=== PATIENT | male | born 1965 | race Caucasian/White ===

== ENCOUNTER 2017-08-06 22:43 | Observation (INO) | payer MEDICARE ==
[2017-08-06 23:38] LABS: ADD MAN DIFF? NO
[2017-08-06] MEDS: ASPIRIN 81 MG TAB PO (23:38)
[2017-08-06] MEDS: ONDANSETRON 4 MG INJ IV ×2 (23:38→23:39)
[2017-08-06] MEDS: METOCLOPRAMIDE 10 MG INJ IV (23:39)
[2017-08-06] MEDS: morphine 2 MG INJ IV (23:39)
[2017-08-06 23:41] LABS: WHITE BLOOD COUNT 6.7 10^3/ul (4.8-10.8)
[2017-08-06 23:41] LABS: BASOPHILS % 0.3 % (0.0-2.0); EOSINOPHILS # 0.1 10^3/ul (0.0-0.5); HEMOGLOBIN 14.2 g/dl (14.0-18.0); LYMPHOCYTES # 3.4 10^3/ul (0.8-2.9); MEAN CORPUSCULAR HGB CONC 34.6 g/dl (32.0-37.0); MEAN CORPUSCULAR VOLUME 86.7 fl (82.0-101.0); MEAN PLATELET VOLUME 9.2 fl (7.4-10.4); MONOCYTE # 0.5 10^3/ul (0.3-0.9); MONOCYTES % 7.5 % (0.0-11.0); NEUTROPHIL # 2.7 10^3/ul (1.6-7.5); NEUTROPHILS % 40.1 % (39.0-77.0); PLATELET COUNT 241 10^3/UL (140-415); RED BLOOD COUNT 4.73 10^6/ul (4.70-6.10); RED CELL DISTRIBUTION WIDTH 12.5 % (11.5-14.5)
[2017-08-06] MEDS: SOD CHLORIDE 0.9% 1,000 ML IV (23:50)
[2017-08-07 00:05] LABS: ALANINE AMINOTRANSFERASE 63 IU/L (13-69); ALBUMIN 4.4 g/dl (3.3-4.9); ALBUMIN/GLOBULIN RATIO 1.41; ALKALINE PHOSPHATASE 65 IU/L (42-121); ANION GAP 21 (8-16); ASPARTATE AMINO TRANSFERASE 37 IU/L (15-46); BILIRUBIN,INDIRECT 0.3 mg/dl (0-1.1); BILIRUBIN,TOTAL 0.3 mg/dl (0.2-1.3); BLOOD UREA NITROGEN 16 mg/dl (7-20); CARBON DIOXIDE 26 mmol/L (21-31); CHLORIDE 106 mmol/L (97-110); CREATININE 1.02 mg/dl (0.61-1.24); GLUCOSE 129 mg/dl (70-220); LIPASE 139 U/L (23-300); POTASSIUM 3.9 mmol/L (3.5-5.1); SODIUM 149 mmol/L (135-144); TOTAL PROTEIN 7.5 g/dl (6.1-8.1)
[2017-08-07 00:09] LABS: LACTIC ACID 2.7 mmol/L (0.5-2.0)
[2017-08-07 00:17] LABS: TROPONIN-I < 0.012 ng/ml (0.00-0.12)
[2017-08-07 01:27] LABS: URINE BLOOD (Dip) POC Trace-intact (NEGATIVE); URINE GLUCOSE (Dip) POC Negative (NEGATIVE); URINE KETONES (Dip) POC Trace (NEGATIVE); URINE LEUKOCYTE EST (Dip) POC Negative (NEGATIVE); URINE NITRITE (Dip) POC Negative (NEGATIVE); URINE TOTAL PROTEIN POC Negative (NEGATIVE)
[2017-08-07 02:37] LABS: ADD UMIC NO; UR ASCORBIC ACID NEGATIVE (NEGATIVE); UR BILIRUBIN (Dip) NEGATIVE (NEGATIVE); UR BLOOD (Dip) NEGATIVE (NEGATIVE); UR CLARITY CLEAR (CLEAR); UR COLOR YELLOW (YELLOW); UR GLUCOSE (Dip) NEGATIVE (NEGATIVE); UR KETONES (Dip) TRACE mg/dL (NEGATIVE); UR LEUKOCYTE ESTERASE (Dip) NEGATIVE Leu/ul (NEGATIVE); UR NITRITE (Dip) NEGATIVE (NEGATIVE); UR TOTAL PROTEIN (Dip) NEGATIVE (NEGATIVE); UR UROBILINOGEN (Dip) NEGATIVE (NEGATIVE)
[2017-08-07] MEDS ORDERED: LORAZEPAM 0.5 MG TAB PO (04:00)
[2017-08-07] MEDS ORDERED: ONDANSETRON 4 MG INJ IV (04:00)
[2017-08-07] MEDS ORDERED: ALBUTEROL/IPRATROPIUM (NEB) 3 ML AMP HHN (04:00)
[2017-08-07] MEDS ORDERED: morphine 2 MG INJ IV (04:00)
[2017-08-07] MEDS ORDERED: NACL 0.9% 3 ML SYG IV (04:00)
[2017-08-07] MEDS ORDERED: LORAZEPAM 2 MG INJ IV (04:00)
[2017-08-07 06:45] LABS: ADD MAN DIFF? NO
[2017-08-07 06:53] LABS: BASOPHILS % 0.5 % (0.0-2.0); EOSINOPHILS # 0.1 10^3/ul (0.0-0.5); HEMATOCRIT 37.6 % (42.0-52.0); HEMOGLOBIN 13.2 g/dl (14.0-18.0); LYMPHOCYTES # 2.5 10^3/ul (0.8-2.9); LYMPHOCYTES % 40.7 % (15.0-51.0); MEAN CORPUSCULAR HEMOGLOBIN 30.5 pg (29.0-33.0); MEAN CORPUSCULAR HGB CONC 35.1 g/dl (32.0-37.0); MEAN CORPUSCULAR VOLUME 86.8 fl (82.0-101.0); MEAN PLATELET VOLUME 9.6 fl (7.4-10.4); MONOCYTE # 0.4 10^3/ul (0.3-0.9); MONOCYTES % 6.9 % (0.0-11.0); NEUTROPHIL # 3.2 10^3/ul (1.6-7.5); NEUTROPHILS % 50.7 % (39.0-77.0); PLATELET COUNT 219 10^3/UL (140-415); RED BLOOD COUNT 4.33 10^6/ul (4.70-6.10); RED CELL DISTRIBUTION WIDTH 12.8 % (11.5-14.5)
[2017-08-07 06:53] LABS: WHITE BLOOD COUNT 6.2 10^3/ul (4.8-10.8)
[2017-08-07 07:24] LABS: ALANINE AMINOTRANSFERASE 56 IU/L (13-69); ALBUMIN 3.7 g/dl (3.3-4.9); ALBUMIN/GLOBULIN RATIO 1.27; ALKALINE PHOSPHATASE 58 IU/L (42-121); ANION GAP 19 (8-16); ASPARTATE AMINO TRANSFERASE 29 IU/L (15-46); BILIRUBIN,INDIRECT 0.2 mg/dl (0-1.1); BILIRUBIN,TOTAL 0.2 mg/dl (0.2-1.3); BLOOD UREA NITROGEN 14 mg/dl (7-20); CALCIUM 8.6 mg/dl (8.4-10.2); CARBON DIOXIDE 25 mmol/L (21-31); CHLORIDE 108 mmol/L (97-110); CHOL/HDL RATIO 1.8 RATIO; CHOLESTEROL 63 mg/dl (100-200); CREATININE 0.86 mg/dl (0.61-1.24); GLUCOSE 98 mg/dl (70-220); HDL CHOLESTEROL 35 mg/dl (28-71); POTASSIUM 3.9 mmol/L (3.5-5.1); SODIUM 148 mmol/L (135-144); TOTAL PROTEIN 6.6 g/dl (6.1-8.1); TRIGLYCERIDES 179 mg/dl (0-149)
[2017-08-07 07:54] LABS: HEMOGLOBIN A1C 5.7 % (0-5.9)
[2017-08-07] MEDS: MULTIVITAMINS THERAPEUTIC TAB PO (08:56)
[2017-08-07] MEDS: CHLORDIAZEPOXIDE 25 MG CAP PO (08:56)
[2017-08-07] MEDS: FAMOTIDINE 20 MG INJ IV (08:56)
[2017-08-07] MEDS: THIAMINE 100 MG TAB PO (08:56)
[2017-08-07] MEDS: FOLIC ACID 1 MG TAB PO (08:56)
[2017-08-07] MEDS: ASPIRIN 81 MG TAB PO (08:56)
[2017-08-07] MEDS: SOD CHLORIDE 0.45% 1,000 ML IV (10:36)
[2017-08-07] MEDS: PANTOPRAZOLE 40 MG INJ IV (10:36)
[2017-08-07 11:24] LABS: LACTIC ACID 1.8 mmol/L (0.5-2.0)
[2017-08-07 11:36] LABS: TROPONIN-I < 0.012 ng/ml (0.00-0.12)
[2017-08-07] MEDS: CHLORDIAZEPOXIDE 5 MG CAP PO ×2 (12:58→20:57)
[2017-08-07] MEDS: SUCRALFATE (100 MG/ML) 10ML CUP PO ×3 (12:58→20:55)
[2017-08-07] MEDS: ACETAMINOPHEN 325 MG TAB PO (14:10)
[2017-08-07] MEDS: MECLIZINE 25 MG TAB PO (17:08)
[2017-08-07 17:27] LABS: TROPONIN-I < 0.012 ng/ml (0.00-0.12)
[2017-08-07] MEDS: METOPROLOL 25 MG TAB PO (20:36)
[2017-08-07] MEDS: ATORVASTATIN 40 MG TAB PO (20:55)
[2017-08-08] MEDS: SOD CHLORIDE 0.45% 1,000 ML IV ×2 (00:18→14:36)
[2017-08-08] MEDS: PANTOPRAZOLE 40 MG INJ IV (05:30)
[2017-08-08 07:08] LABS: ADD MAN DIFF? NO
[2017-08-08 07:16] LABS: BASOPHILS % 0.3 % (0.0-2.0); EOSINOPHILS # 0.1 10^3/ul (0.0-0.5); EOSINOPHILS % 1.7 % (0.0-7.0); LYMPHOCYTES # 2.4 10^3/ul (0.8-2.9); LYMPHOCYTES % 34.2 % (15.0-51.0); MEAN CORPUSCULAR HEMOGLOBIN 29.9 pg (29.0-33.0); MEAN CORPUSCULAR HGB CONC 34.1 g/dl (32.0-37.0); MEAN CORPUSCULAR VOLUME 87.4 fl (82.0-101.0); MEAN PLATELET VOLUME 9.6 fl (7.4-10.4); MONOCYTE # 0.6 10^3/ul (0.3-0.9); MONOCYTES % 8.2 % (0.0-11.0); NEUTROPHIL # 3.8 10^3/ul (1.6-7.5); NEUTROPHILS % 55.3 % (39.0-77.0); PLATELET COUNT 241 10^3/UL (140-415); RED BLOOD COUNT 4.69 10^6/ul (4.70-6.10); RED CELL DISTRIBUTION WIDTH 12.7 % (11.5-14.5)
[2017-08-08 07:16] LABS: WHITE BLOOD COUNT 6.9 10^3/ul (4.8-10.8)
[2017-08-08 07:38] LABS: ANION GAP 16 (8-16); BLOOD UREA NITROGEN 16 mg/dl (7-20); CALCIUM 8.7 mg/dl (8.4-10.2); CARBON DIOXIDE 27 mmol/L (21-31); CHLORIDE 106 mmol/L (97-110); GLUCOSE 104 mg/dl (70-220); PHOSPHORUS 3.5 mg/dl (2.5-4.9); POTASSIUM 3.8 mmol/L (3.5-5.1); SODIUM 145 mmol/L (135-144)
[2017-08-08] MEDS: ASPIRIN 81 MG TAB PO (09:08)
[2017-08-08] MEDS: MULTIVITAMINS THERAPEUTIC TAB PO (09:08)
[2017-08-08] MEDS: THIAMINE 100 MG TAB PO (09:08)
[2017-08-08] MEDS: FOLIC ACID 1 MG TAB PO (09:08)
[2017-08-08] MEDS: METOPROLOL 25 MG TAB PO (09:09)
[2017-08-08] MEDS: SUCRALFATE (100 MG/ML) 10ML CUP PO ×2 (09:09→13:00)
[2017-08-08] MEDS: NITROGLYCERIN (SL) 0.4 MG TAB SL (12:58)
[2017-08-08 15:17] LABS: TROPONIN-I < 0.012 ng/ml (0.00-0.12)
[2017-08-08] MEDS ORDERED: METOPROLOL 25 MG TAB PO (21:00)
[2017-08-09] MEDS ORDERED: PANTOPRAZOLE (EC) 40 MG TAB PO (06:00)
== END 2017-08-08 17:00 | disposition left against medical advice (07) ==
LOC: E/R 22:43 → TEL 08-07 02:11
DX: R07.89 Other chest pain (principal); I10 Essential (primary) hypertension; E78.00 Pure hypercholesterolemia, unspecified; I25.10 Atherosclerotic heart disease of native coronary artery without angina pectoris; Z95.5 Presence of coronary angioplasty implant and graft; E78.5 Hyperlipidemia, unspecified; F10.20 Alcohol dependence, uncomplicated; Z82.49 Family history of ischemic heart disease and other diseases of the circulatory system
CPT/HCPCS: 36415; 71045; 80048; 80053; 80061; 81003; 82962; 83036; 83605; 83690; 83735; 84100; 84443; 84484; 85025; 93005; 93306; 93880; 96374; 96375; 97161; 99285-25; G0378